=== PATIENT | male | born 1970 | race Caucasian/White ===

== ENCOUNTER 2023-04-14 08:52 | Observation (INO) | payer OTHER ==
[2023-04-14] MEDS ORDERED: NITROGLYCERIN OINT 1 INCH/GM PACKET TOPICAL STA (09:15)
--- NOTE | 2023-04-14 09:18 | ED ---
General Adult HPI - General Chief complaint: Chest Pain Stated complaint: chest pain Time Seen by Provider: 04/14/23 09:00 Source: patient, EMS, RN notes reviewed, old records reviewed Mode of arrival: EMS Limitations: no limitations - History of Present Illness Initial comments: This is a 52-year-old male who is at [facility] for heroin and crack abuse. Patient comes in today because he started having chest pain yesterday. Patient states it was intermittent since yesterday but it came on again this morning it radiated to his left shoulder is mildly short of breath. Patient states she got an aspirin and nitro glycerin in the ambulance and it completely resolved his pain. Patient states she has no symptoms currently. Patient denies any diaphoretic episodes. Patient denies any nausea patient denies any abdominal pain. Patient denies any recent fever chills or cough per patient denies headache patient denies numbness weakness. Currently patient has no complaints patient states he last used drugs on Saturday - Related Data Allergies Allergy/AdvReac Type Severity Reaction Status Date / Time No Known Allergies Allergy Verified 04/14/23 09:00 Review of Systems ROS Statement: Those systems with pertinent positive or pertinent negative responses have been documented in the HPI. ROS Other: All systems not noted in ROS Statement are negative. Past Medical History Past Medical History: Hypertension, Liver Disease History of Any Multi-Drug Resistant Organisms: None Reported Past Surgical History: Appendectomy Past Psychological History: No Psychological Hx Reported Smoking Status: Current every day smoker Past Alcohol Use History: Rare Past Drug Use History: Cocaine, Heroin, Methamphetamine General Exam - General Exam Comments Initial Comments: GENERAL: Patient is well-developed and well-nourished. Patient is nontoxic and well- hydrated and is in no acute distress. ENT: Neck is soft and supple. No significant lymphadenopathy is noted. Oropharynx is clear. Moist mucous membranes. Neck has full range of motion without e liciting any pain. EYES: The sclera were anicteric and conjunctiva were pink and moist. Extraocular movements were intact and pupils were equal round and reactive to light. Eyelids were unremarkable. PULMONARY: Unlabored respirations. Good breath sounds bilaterally. No audible rales rhonchi or wheezing was noted. CARDIOVASCULAR: There is a regular rate and rhythm without any murmurs gallops or rubs. ABDOMEN: Soft and nontender with normal bowel sounds. No palpable organomegaly was no ana maria. There is no palpable pulsatile mass. SKIN: Skin is clear with no lesions or rashes and otherwise unremarkable. NEUROLOGIC: Patient is alert and oriented x3. Cranial nerves II through XII are grossly intact. Motor and sensory are also intact. Normal speech, volume and content. Symmetrical smile. MUSCULOSKELETAL: Normal extremities with adequate strength and full range of motion. No lower extremity swelling or edema. No calf tenderness. LYMPHATICS: No significant lymphadenopathy is noted PSYCHIATRIC: Normal psychiatric evaluation. Limitations: no limitations Course Vital Signs 04/14/23 04/14/23 08:53 10:19 Temperature 98.7 F Pulse Rate 66 68 Respiratory 16 18 Rate Blood Pressure 113/68 99/61 O2 Sat by Pulse 99 98 Oximetry Medical Decision Making - Medical Decision Making EKG is interpreted by myself EKG shows a sinus rhythm at 65 bpm ID interval 206 QRS 105 QT interval 390 QTC is 411. EKG shows no ST segment elevation or depression Was pt. sent in by a medical professional or institution (, PA, SCRUM MASTER, urgent care, hospital, or correction...) When possible be specific @ -[facility] sent the patient in Did you speak to anyone other than the patient for history (EMS, parent, family, police, friend...)? What history was obtained from this source @ -[No] Did you review nursing and triage notes (agree or disagree)? Why? @ -[I reviewed and agree with nursing and triage notes] Were old charts reviewed (outside hosp., previous admission, EMS record, old EK G, old radiological studies, urgent care reports/EKG's, correction records)? Report findings @ -[No old charts were reviewed] Differential Diagnosis (chest pain, altered mental status, abdominal pain women, abdominal pain men, vaginal bleeding, weakness, fever, dyspnea, syncope, headache, dizziness, GI bleed, back pain, seizure, CVA, palpatations, mental he alth, musculoskeletal)? @ -Differential chest pain EKG interpreted by me (3pts min.). @ -[As above] X-rays interpreted by me (1pt min.). @ -Chest x-ray shows no acute abnormality CT interpreted by me (1pt min.). @ -[None done] U/S interpreted by me (1pt. min.). @ -[None done] What testing was considered but not performed or refused? (CT, X-rays, U/S, labs)? Why? @ -[None] What meds were considered but not given or refused? Why? @ -[None] Did you discuss the management of the patient with other professionals (professionals i.e. , PA, SCRUM MASTER, lab, RT, psych nurse, social services director, curtain cutter, teacher, special weapons and tactics officer, correctional casework specialist)? Give summary @ -I spoke with [facility] agreed to admit the patient admitted the patient I wrote admitting orders. Was smoking cessation discussed for >3mins.? @ -[No] Was critical care preformed (if so, how long)? @ -[No] Were there social determinants of health that impacted care today? How? (Homelessness, low income, unemployed, alcoholism, drug addiction, transpor tation, low edu. Level, literacy, decrease access to med. care, residential, rehab)? @ -[No] Was there de-escalation of care discussed even if they declined (Discuss DNR or withdrawal of care, Hospice)? DNR status @ -[No] What co-morbidities impacted this encounter? (DM, HTN, Smoking, COPD, CAD, Cancer, CVA, ARF, Chemo, Hep., AIDS, mental health diagnosis, sleep apnea, morbid obesity)? @ -[None] Was patient admitted / discharged? Hospital course, mention meds given and route, prescriptions, significant lab abnormalities, going to OR and other pertinent info. @ -Patient received aspirin and Nitropaste on the emesis on the way in and his pain has subsided. Patient was given Nitropaste in the emergency department. He no longer had any chest pain. He spoke with [facility] and they agreed to admit the patient admitted the patient wrote admitting orders Undiagnosed new problem with uncertain prognosis? @ -[No] Drug Therapy requiring intensive monitoring for toxicity (Heparin, Nitro, Ins ulin, Cardizem)? @ -[No] Were any procedures done? @ -[No] Diagnosis/symptom? @ -Chest pain Acute, or Chronic, or Acute on Chronic? @ -Acute Uncomplicated (without systemic symptoms) or Complicated (systemic symptoms)? @ -Complicated Side effects of treatment? @ -[No] Exacerbation, Progression, or Severe Exacerbation? @ -[No] Poses a threat to life or bodily function? How? (Chest pain, [place], [place], pneumonia, PE, COPD, DKA, ARF, appy, cholecystitis, CVA, Diverticulitis, Homicidal, Suicidal, threat to staff... and all critical care pts) @ -Yes this can lead to a myocardial infarction and end organ dysfunction - Lab Data Result diagrams: 04/14/23 09:17 04/14/23 09:17 Lab Results 04/14/23 04/14/23 04/14/23 Range/Units 09:17 09:17 09:17 WBC 2.9 L (3.8-10.6) k/uL RBC 4.59 (4.30-5.90) m/uL Hgb 14.1 (13.0-17.5) gm/dL Hct 42.1 (39.0-53.0) % MCV 91.6 (80.0-100.0) fL MCH 30.6 (25.0-35.0) pg MCHC 33.4 (31.0-37.0) g/dL RDW 13.7 (11.5-15.5) % Plt Count 105 L (150-450) k/uL MPV 7.9 Neutrophils % 53 % Lymphocytes % 33 % Monocytes % 6 % Eosinophils % 6 % Basophils % 0 % Neutrophils # 1.5 (1.3-7.7) k/uL Lymphocytes # 1.0 (1.0-4.8) k/uL Monocytes # 0.2 (0-1.0) k/uL Eosinophils # 0.2 (0-0.7) k/uL Basophils # 0.0 (0-0.2) k/uL PT 10.5 (10.0-12.5) sec INR 1.0 (<1.2) APTT 23.7 (22.0-30.0) sec Sodium 138 (137-145) mmol/L Potassium 4.3 (3.5-5.1) mmol/L Chloride 103 (98-107) mmol/L Carbon Dioxide 29 (22-30) mmol/L Anion Gap 6 mmol/L BUN 23 H (9-20) mg/dL Creatinine 0.79 (0.66-1.25) mg/dL Est GFR (CKD-EPI)AfAm >90 (>60 ml/min/1.73 sqM) Est GFR (CKD-EPI)NonAf >90 (>60 ml/min/1.73 sqM) Glucose 114 H (74-99) mg/dL Calcium 9.1 (8.4-10.2) mg/dL Magnesium 1.8 (1.6-2.3) mg/dL Total Bilirubin 0.4 (0.2-1.3) mg/dL AST 26 (17-59) U/L ALT 21 (4-49) U/L Alkaline Phosphatase 54 (38-126) U/L Troponin I (0.000-0.034) ng/mL Total Protein 6.7 (6.3-8.2) g/dL Albumin 3.7 (3.5-5.0) g/dL 04/14/23 Range/Units 09:17 WBC (3.8-10.6) k/uL RBC (4.30-5.90) m/uL Hgb (13.0-17.5) gm/dL Hct (39.0-53.0) % MCV (80.0-100.0) fL MCH (25.0-35.0) pg MCHC (31.0-37.0) g/dL RDW (11.5-15.5) % Plt Count (150-450) k/uL MPV Neutrophils % % Lymphocytes % % Monocytes % % Eosinophils % % Basophils % % Neutrophils # (1.3-7.7) k/uL Lymphocytes # (1.0-4.8) k/uL Monocytes # (0-1.0) k/uL Eosinophils # (0-0.7) k/uL Basophils # (0-0.2) k/uL PT (10.0-12.5) sec INR (<1.2) APTT (22.0-30.0) sec Sodium (137-145) mmol/L Potassium (3.5-5.1) mmol/L Chloride (98-107) mmol/L Carbon Dioxide (22-30) mmol/L Anion Gap mmol/L BUN (9-20) mg/dL Creatinine (0.66-1.25) mg/dL Est GFR (CKD-EPI)AfAm (>60 ml/min/1.73 sqM) Est GFR (CKD-EPI)NonAf (>60 ml/min/1.73 sqM) Glucose (74-99) mg/dL Calcium (8.4-10.2) mg/dL Magnesium (1.6-2.3) mg/dL Total Bilirubin (0.2-1.3) mg/dL AST (17-59) U/L ALT (4-49) U/L Alkaline Phosphatase (38-126) U/L Troponin I <0.012 (0.000-0.034) ng/mL Total Protein (6.3-8.2) g/dL Albumin (3.5-5.0) g/dL Disposition Clinical Impression: Chest pain Disposition: ADMITTED IP TO THIS HOSP Referrals: None,Stated [Primary Care Provider] - 1-2 days Time of Disposition: 11:49
[2023-04-14 09:42] LABS: Basophils % (A) 0 %; Eosinophils # (A) 0.2 k/uL (0-0.7); Eosinophils % (A) 6 %; HCT 42.1 % (39.0-53.0); HGB 14.1 gm/dL (13.0-17.5); Lymphocytes % (A) 33 %; MCH 30.6 pg (25.0-35.0); MCHC 33.4 g/dL (31.0-37.0); MCV 91.6 fL (80.0-100.0); Mean Platelet Volume 7.9; Monocytes # (A) 0.2 k/uL (0-1.0); Monocytes % (A) 6 %; Neutrophils # (A) 1.5 k/uL (1.3-7.7); Neutrophils % (A) 53 %; Platelet Count 105 k/uL (150-450); RBC 4.59 m/uL (4.30-5.90); RDW 13.7 % (11.5-15.5); WBC 2.9 k/uL (3.8-10.6)
[2023-04-14 09:59] LABS: Partial Thromboplastin Time 23.7 sec (22.0-30.0); Prothrombin Time 10.5 sec (10.0-12.5)
[2023-04-14 10:22] LABS: ALT 21 U/L (4-49); AST 26 U/L (17-59); African American GFR (CKD) >90 (>60 ml/min/1.73 sqM); Albumin 3.7 g/dL (3.5-5.0); Alkaline Phosphatase 54 U/L (38-126); Anion Gap 6 mmol/L; Blood Urea Nitrogen 23 mg/dL (9-20); Calcium 9.1 mg/dL (8.4-10.2); Carbon Dioxide 29 mmol/L (22-30); Chloride 103 mmol/L (98-107); Glucose 114 mg/dL (74-99); Magnesium 1.8 mg/dL (1.6-2.3); Non-African American GFR(CKD) >90 (>60 ml/min/1.73 sqM); Potassium 4.3 mmol/L (3.5-5.1); Sodium 138 mmol/L (137-145); Total Bilirubin 0.4 mg/dL (0.2-1.3); Total Protein 6.7 g/dL (6.3-8.2)
--- NOTE | 2023-04-14 10:29 | XR ---
EXAMINATION TYPE: XR chest 2V DATE OF EXAM: 04/14/2023 9:38 AM CLINICAL INDICATION:Male, 52 years old with history of Chest Pain; [facility] COMPARISON: None TECHNIQUE: XR chest 2V Frontal and lateral views of the chest. FINDINGS: Lines/Tubes: EKG leads overlie the chest. No indwelling lines are seen. Lungs/Pleura: There is no evidence of pleural effusion, focal consolidation, or pneumothorax. Lungs appear somewhat hyperinflated with some flattening of the diaphragm. Pulmonary vascularity: Unremarkable. Heart/mediastinum: Cardiomediastinal silhouette is unremarkable. Heart is not enlarged. Musculoskeletal: No acute osseous pathology. Unremarkable soft tissues. Other findings: None IMPRESSION: No acute cardiopulmonary disease/process. Hyperinflated lungs.
[2023-04-14] MEDS ORDERED: NITROGLYCERIN SL TABS 0.4 MG TAB SUBLINGUAL PRN (11:49)
[2023-04-14] MEDS: NITROGLYCERIN OINT 1 INCH/GM PACKET TOPICAL SCH ×2 (12:11→21:14)
[2023-04-14] MEDS ORDERED: traZODone HCL 50 MG TAB PO PRN (13:16)
[2023-04-14] MEDS ORDERED: NON FORMULARY DRUG (Calcium/Magnesium/Zinc/Vitamin D 334/134/5mg 1 TAB) PO PRN (13:16)
[2023-04-14] MEDS ORDERED: MELATONIN 3 MG TABLET PO PRN (13:21)
[2023-04-14] MEDS ORDERED: MAG HYDROX/AL HYDROX/SIMETH 30 ML CUP PO PRN (13:21)
[2023-04-14] MEDS ORDERED: NALOXONE 0.4 MG/ML 1 ML VIAL IV PRN (13:21)
[2023-04-14] MEDS ORDERED: ONDANSETRON 4 MG/2 ML VIAL IVP PRN (13:21)
[2023-04-14] MEDS ORDERED: ACETAMINOPHEN TAB 325 MG TAB PO PRN (13:21)
--- NOTE | 2023-04-14 13:22 | P.HPIM ---
History of Present Illness H&P Date: 04/14/23 History of present illness; patient is a 52-year-old gentleman with history of p olysubstance abuse, was being treated at [facility] for heroin and crack cocaine abuse who Was brought to the ER for chest pain patient stated that he woke up yesterday morning with chest pain that started suddenly, central in location, persistent, varying in intensity throughout the day, no aggravating or relieving factors associated with this chest pain, radiating towards his left arm and is associated with shortness of breath. Denies any palpitation. Denies any orthopnea or PND. Denies any nausea, vomiting or abdominal pain. Denies any sweating. Chest pain persisted throughout yesterday and today and that made him come to the ER Initial lab work done in the ER showed WBC 2.9, hemoglobin 14.1, platelet count 105, sodium 1:30, potassium 4.3, BUN 23, creatinine 0.79, total bilirubin 0.4 AST 26, ALT 21, troponin 0.012 EKG done in the ER heart rate 65, no ST segment elevation, no T-wave inversions seen Chest x-ray done in the ER showed no acute cardiac pulmonary process Patient admitted to medicine service REVIEW OF SYSTEMS: CONSTITUTIONAL: No fever, no malaise, no fatigue. HEENT: No recent visual problems or hearing problems. Denied any sore throat. CARDIOVASCULAR: As mentioned in HPI PULMONARY: No shortness of breath, no cough, no hemoptysis. GASTROINTESTINAL: No diarrhea, no nausea, no vomiting, no abdominal pain. NEUROLOGICAL: No headaches, no weakness, no numbness. HEMATOLOGICAL: Denies any bleeding or petechiae. GENITOURINARY: Denies any burning micturition, frequency, or urgency. MUSCULOSKELETAL/RHEUMATOLOGICAL: Denies any joint pain, swelling, or any muscle pain. ENDOCRINE: Denies any polyuria or polydipsia. The rest of the 14-point review of systems is negative. PHYSICAL EXAMINATION: GENERAL: The patient is alert and oriented x3, not in any acute distress. Well developed, well nourished. HEENT: Pupils are round and equally reacting to light. EOMI. No scleral icterus. No conjunctival pallor. Normocephalic, atraumatic. No pharyngeal erythema. No thyromegaly. CARDIOVASCULAR: S1 and S2 present. No murmurs, rubs, or gallops. PULMONARY: Chest is clear to auscultation, no wheezing or crackles. ABDOMEN: Soft, nontender, nondistended, normoactive bowel sounds. No palpable organomegaly. MUSCULOSKELETAL: No joint swelling or deformity. EXTREMITIES: No cyanosis, clubbing, or pedal edema. NEUROLOGICAL: Gross neurological examination did not reveal any focal deficits. SKIN: No rashes. Assessment and plan Chest pain rule out acute coronary syndrome Polysubstance abuse admits to using cocaine and heroin, last use one week back Monitor vital signs Monitor CBC Monitor CMP Continue telemetry monitoring Trend troponins Ordered urine drug screen Ordered 2-D echo Consult cardiology Labs and medication were reviewed.. Continue same treatment. Continue with symptomatic treatment. Resume home medication. Monitor labs and vitals. DVT and GI prophylaxis. Further recommendations as per clinical course of the patient Dictation was produced using [email or web address] dictation software. please excuse any grammatical, word or spelling errors. Past Medical History Past Medical History: Hypertension, Liver Disease History of Any Multi-Drug Resistant Organisms: None Reported Past Surgical History: Appendectomy Past Psychological History: No Psychological Hx Reported Smoking Status: Current every day smoker Past Alcohol Use History: Rare Past Drug Use History: Cocaine, Heroin, Methamphetamine Medications and Allergies Home Medications Medication Instructions Recorded Confirmed Type Acetaminophen Tab [Tylenol] 650 mg PO Q4H PRN 04/14/23 04/14/23 History Aspirin 325 mg PO ONCE 04/14/23 04/14/23 History Calcium/Magnesium/Zinc/Vitamin D 1 tab PO TID PRN 04/14/23 04/14/23 History 334/134/5mg Ibuprofen [Motrin Ib] 600 mg PO Q6H PRN 04/14/23 04/14/23 History Methadone HCl [Methadone Intensol] 30 mg PO DIRECTED 04/14/23 04/14/23 History busPIRone HCl [Buspar] 10 mg PO TID 04/14/23 04/14/23 History traZODone HCL [Desyrel] 50 - 150 mg PO HS PRN 04/14/23 04/14/23 History Allergies Allergy/AdvReac Type Severity Reaction Status Date / Time No Known Allergies Allergy Verified 04/14/23 12:43 Physical Exam Vitals: Vital Signs Temp Pulse Resp BP Pulse Ox 04/14/23 11:39 60 18 105/63 97 04/14/23 10:19 68 18 99/61 98 04/14/23 08:53 98.7 F 66 16 113/68 99 Intake and Output 04/13/23 04/14/23 04/14/23 22:59 06:59 14:59 Other: Weight 70.76 kg Results CBC & Chem 7: 04/14/23 09:17 04/14/23 09:17 Labs: Abnormal Lab Results - Last 24 Hours (Table) 04/14/23 04/14/23 Range/Units 09:17 09:17 WBC 2.9 L (3.8-10.6) k/uL Plt Count 105 L (150-450) k/uL BUN 23 H (9-20) mg/dL Glucose 114 H (74-99) mg/dL
--- NOTE | 2023-04-14 14:56 | P.CRDCN ---
History of Present Illness Consult date: 04/14/23 History of present illness: HISTORY OF PRESENTING ILLNESS 52-year-old with history of polysubstance abuse being treated at [facility] for he going and crack cocaine abuse. He is also a prior smoker and alcoholic. He also used marijuana. Present to the hospital because of substernal chest pain that started yesterday. He describes is as chest pressure central located. He reported that his symptoms got better after receiving sublingual nitroglycerin in the ER. He is hemodynamically stable. WBC 2.9, hemoglobin 14, platelets 105, sodium 1:30, potassium 4.2, BUN 23, creatinine 0.79, ECG shows sinus rhythm with no significant ST-T wave changes Chest x-ray did not show any acute cardiac permit process He has not had any prior cardiac workups in the past. Family history of CAD in father and stroke in mother Smoker, marijuana user, alcoholic, drug abuse and currently in rehab REVIEW OF SYSTEMS 14 point review of system is negative except what is mentioned above in HPI. PHYSICAL EXAMINATION Vital signs reviewed. Head: Normocephalic. Eyes: Sclerae nonicteric. Neck: Brisk carotid upstroke, no jugular venous distention. Lungs: Clear to auscultation. Heart: Regular rate and rhythm, S1-S2, no S3, no murmur or rub. Abdomen: Soft nontender, positive bowel sounds no organomegaly. Extremities: No edema, intact distal pulses. Neuro: Alert, oritented, no focal deficits ASSESSMENT Typical chest pain, rule out of acute coronary syndrome Polysubstance abuse, cocaine, heroin Tobacco smoker marijuana smoker Alcoholic PLAN Plan for treadmill echocardiogram stress test tomorrow Further recommendations to follow Past Medical History Past Medical History: Hypertension, Liver Disease History of Any Multi-Drug Resistant Organisms: None Reported Past Surgical History: Appendectomy Past Psychological History: No Psychological Hx Reported Smoking Status: Current every day smoker Past Alcohol Use History: Rare Past Drug Use History: Cocaine, Heroin, Methamphetamine Medications and Allergies Home Medications Medication Instructions Recorded Confirmed Type Acetaminophen Tab [Tylenol] 650 mg PO Q4H PRN 04/14/23 04/14/23 History Aspirin 325 mg PO ONCE 04/14/23 04/14/23 History Calcium/Magnesium/Zinc/Vitamin D 1 tab PO TID PRN 04/14/23 04/14/23 History 334/134/5mg Ibuprofen [Motrin Ib] 600 mg PO Q6H PRN 04/14/23 04/14/23 History Methadone HCl [Methadone Intensol] 30 mg PO DIRECTED 04/14/23 04/14/23 History busPIRone HCl [Buspar] 10 mg PO TID 04/14/23 04/14/23 History traZODone HCL [Desyrel] 50 - 150 mg PO HS PRN 04/14/23 04/14/23 History Allergies Allergy/AdvReac Type Severity Reaction Status Date / Time No Known Allergies Allergy Verified 04/14/23 12:43 Physical Exam Vitals: Vital Signs Temp Pulse Resp BP Pulse Ox 04/14/23 14:46 98.1 F 60 18 109/69 98 04/14/23 11:39 60 18 105/63 97 04/14/23 10:19 68 18 99/61 98 04/14/23 08:53 98.7 F 66 16 113/68 99 Intake and Output 04/13/23 04/14/23 04/14/23 22:59 06:59 14:59 Other: Weight 70.76 kg Results 04/14/23 09:17 04/14/23 09:17 Cardiac Enzymes 04/14/23 04/14/23 04/14/23 Range/Units 09:17 09:17 12:24 AST 26 (17-59) U/L Troponin I <0.012 <0.012 (0.000-0.034) ng/mL Coagulation 04/14/23 Range/Units 09:17 PT 10.5 (10.0-12.5) sec APTT 23.7 (22.0-30.0) sec CBC 04/14/23 Range/Units 09:17 WBC 2.9 L (3.8-10.6) k/uL RBC 4.59 (4.30-5.90) m/uL Hgb 14.1 (13.0-17.5) gm/dL Hct 42.1 (39.0-53.0) % Plt Count 105 L (150-450) k/uL Comprehensive Metabolic Panel 04/14/23 Range/Units 09:17 Sodium 138 (137-145) mmol/L Potassium 4.3 (3.5-5.1) mmol/L Chloride 103 (98-107) mmol/L Carbon Dioxide 29 (22-30) mmol/L BUN 23 H (9-20) mg/dL Creatinine 0.79 (0.66-1.25) mg/dL Glucose 114 H (74-99) mg/dL Calcium 9.1 (8.4-10.2) mg/dL AST 26 (17-59) U/L ALT 21 (4-49) U/L Alkaline Phosphatase 54 (38-126) U/L Total Protein 6.7 (6.3-8.2) g/dL Albumin 3.7 (3.5-5.0) g/dL Current Medications Generic Name Dose Route Start Last Admin Trade Name Freq PRN Reason Stop Dose Admin Acetaminophen 650 mg 04/14/23 13:21 Acetaminophen Tab 325 Mg Tab PO Q6HR PRN Mild Pain or Fever > 100.5 Al Hydroxide/Mg Hydroxide 15 ml 04/14/23 13:21 Mag Hydrox/Al Hydrox/Simeth 30 Ml Cup PO Q6HR PRN Indigestion Aspirin 325 mg 04/15/23 09:00 Aspirin 325 Mg Tab PO DAILY [facility] Buspirone HCl 10 mg 04/14/23 16:00 Buspirone Hcl 10 Mg Tab PO TID [facility] Melatonin 3 mg 04/14/23 13:21 Melatonin 3 Mg Tablet PO HS PRN Insomnia Naloxone HCl 0.2 mg 04/14/23 13:21 Naloxone 0.4 Mg/Ml 1 Ml Vial IV Q2M PRN Opioid Reversal Nitroglycerin 0.4 mg 04/14/23 11:49 Nitroglycerin Sl Tabs 0.4 Mg Tab SUBLINGUAL Q5M PRN Chest Pain Nitroglycerin 1 inch 04/14/23 12:00 04/14/23 12:11 Nitroglycerin Oint 1 Inch/Gm Packet TOPICAL Not Given Q6HR [facility] Ondansetron HCl 4 mg 04/14/23 13:21 Ondansetron 4 Mg/2 Ml Vial IVP Q8HR PRN Nausea And Vomiting Trazodone HCl 50 mg 04/14/23 13:16 Trazodone Hcl 50 Mg Tab PO HS PRN Insomnia Intake and Output 04/13/23 04/14/23 04/14/23 22:59 06:59 14:59 Other: Weight 70.76 kg Patient Weight 04/15/23 06:59 Weight 70.76 kg 04/14/23 09:17 04/14/23 09:17
[2023-04-14] MEDS: NICOTINE 21MG/24HR PATCH TRANSDERM SCH (16:04)
[2023-04-14] MEDS: busPIRone HCl 10 MG TAB PO SCH ×2 (16:57→21:08)
[2023-04-14 17:08] LABS: Amphetamine Screen,Urine Not Detected (NotDetected); Barbiturate Screen,Urine Not Detected (NotDetected); Benzodiazepines Screen,Urine Not Detected (NotDetected); Cocaine Screen,Urine Not Detected (NotDetected); Methadone Screen, Urine Detected (NotDetected); Opiate Screen,Urine Not Detected (NotDetected); Oxycodone Screen, Urine Not Detected (NotDetected); Phencyclidine Screen,Urine Not Detected (NotDetected); Tricyclic Antidepressant,Urine Not Detected (NotDetected); Urn Cannabinoid Scrn Not Detected (NotDetected)
[2023-04-15] MEDS: NITROGLYCERIN OINT 1 INCH/GM PACKET TOPICAL SCH ×2 (00:26→06:10)
[2023-04-15 08:28] VITALS: BP 146/85; PULSE 59; RESP 18; TEMP 98.2
[2023-04-15] MEDS ORDERED: ASPIRIN 81 MG PO SCH (09:00)
[2023-04-15] MEDS ORDERED: ASPIRIN 325 MG TAB PO SCH (09:00)
[2023-04-15 09:02] LABS: Blood Urea Nitrogen 20.5 mg/dL (9.0-27.0); Calcium 9.3 mg/dL (8.7-10.3); Chloride 102 mmol/L (96-109); Chol/HDL Ratio 2.68 Ratio; Glucose 86 mg/dL (70-110); LDL Cholesterol,Calculated 84.8 mg/dL (0.0-131.0); Potassium 4.9 mmol/L (3.5-5.5); Sodium 141 mmol/L (135-145)
[2023-04-15] MEDS: NICOTINE 21MG/24HR PATCH TRANSDERM SCH (09:02)
[2023-04-15] MEDS: busPIRone HCl 10 MG TAB PO SCH (09:02)
[2023-04-15 10:25] LABS: Basophils # (A) 0.02 X 10*3/uL (0.00-0.10); Basophils % (A) 0.6 %; Eosinophils # (A) 0.16 X 10*3/uL (0.04-0.35); HGB 13.8 d/dL (13.0-17.0); Lymphocytes % (A) 40.5 %; MCH 29.7 pg (27.0-32.0); MCHC 32.1 d/dL (32.0-37.0); MCV 92.5 FL (80.0-97.0); Mean Platelet Volume 10.6 FL (9.5-12.2); Monocytes # (A) 0.22 X 10*3/uL (0.20-1.00); Monocytes % (A) 6.9 %; NRBC Per 100 WBC 0 X 10*3/uL (0.00-0.01); Neutrophils # (A) 1.49 X 10*3/uL (1.80-7.70); Neutrophils % (A) 46.4 %; Platelet Count 98 X 10*3/uL (140-440); RBC 4.65 X 10*6/uL (4.40-5.60); RDW 13.7 % (11.5-14.5); WBC 3.21 X 10*3/uL (4.50-10.00)
[2023-04-15] MEDS ORDERED: DOBUTamine DRIP for NUC MED 500 MG in DEXTROSE/WATER 1 250ML.BAG IV PRN (11:49)
--- NOTE | 2023-04-15 12:10 | P.PN ---
Subjective HISTORY OF PRESENT ILLNESS: 52-year-old with history of polysubstance abuse being treated at [facility] for he going and crack cocaine abuse. He is also a prior smoker and alcoholic. He also used marijuana. Present to the hospital because of substernal chest pain that started yesterday. He describes is as chest pressure central located. He reported that his symptoms got better after receiving sublingual nitroglycerin in the ER. He is hemodynamically stable. WBC 2.9, hemoglobin 14, platelets 105, sodium 1:30, potassium 4.2, BUN 23, creatinine 0.79, ECG shows sinus rhythm with no significant ST-T wave changes Chest x-ray did not show any acute cardiac permit process He has not had any prior cardiac workups in the past. Family history of CAD in father and stroke in mother Smoker, marijuana user, alcoholic, drug abuse and currently in rehab 04/15/2023 Patient examined this morning at the bedside. Patient denies any further episodes of chest pain or pressure. He denies shortness of breath. Telemetry reveals sinus mechanism. Vital signs are stable. PHYSICAL EXAM: VITAL SIGNS: Reviewed. GENERAL: Well-developed in no acute distress. NECK: Supple. No JVD or thyromegaly LUNGS: Respirations even and unlabored. Lungs essentially clear to auscultation bilaterally. HEART: Regular rate and rhythm. S1 and S2 heard. EXTREMITIES: Normal range of motion. No clubbing or cyanosis. Peripheral pulses intact. No lower extremity edema ASSESSMENT: Chest pain Polysubstance abuse (cocaine and heroin) Nicotine dependence Marijuana use Alcohol abuse PLAN: An acute coronary has been ruled out Decrease aspirin to 81 mg daily Discontinue nitro paste 2-D echo has been ordered. Await results. Patient to undergo stress echocardiogram today If negative, he may be discharged today from a cardiac standpoint Nurse practitioner note has been reviewed by physician. Signing provider agrees with the documented findings, assessment, and plan of care. Objective - Vital Signs Vital signs: Vital Signs Temp 97.7 F 04/15/23 01:05 Pulse 71 04/15/23 02:00 Resp 17 04/15/23 02:00 BP 148/79 04/15/23 01:05 Pulse Ox 100 04/15/23 01:05 FiO2 Intake & Output 04/14/23 04/15/23 04/15/23 18:59 06:59 18:59 Intake Total 120 Balance 120 Weight 70.76 kg Intake: Oral 120 Other: # Voids 2 - Labs CBC & Chem 7: 04/15/23 05:45 04/15/23 05:45 Labs: Abnormal Lab Results - Last 24 Hours (Table) 04/14/23 04/14/23 04/14/23 Range/Units 09:17 09:17 16:52 WBC 2.9 L (3.8-10.6) k/uL Plt Count 105 L (150-450) k/uL BUN 23 H (9-20) mg/dL Glucose 114 H (74-99) mg/dL Urine Methadone Screen Detected H (NotDetected)
[2023-04-15] MEDS ORDERED: DOBUTamine DRIP for NUC MED 500 MG/250 ML BAG IV ONE (12:50)
--- NOTE | 2023-04-15 14:03 | CA ---
Dobutamine Stress Echocardiogram Report Shay Carter Age: 52 Gender: M : 1970 Exam Date: 04/15/2023 11:29 Exam Location: [facility] Ordering Physician: Natty Ya Referring Physician: ISRAEL GR,, Armored Service Technician: Tez Bailey Technologist: Ht (in): 69 Wt (lb): 150 Procedure CPT: Indication: CP ICD-9 Codes: Rhythm: Patient History: CP, DIP, HTN, FAMILY HX, KARRIE (1/5PPD X 40YRS) Cardiac Medications: BUSPAR Medications in past 24 hours: Contrast: Total Dose (mL): Stress Results Protocol: Dobutamine Peak Dose (???g/kg/min): 40 Duration (min:sec): Atropine:(mg) None Target HR: 141 Double Product: [id number] Resting HR: 63 Resting BP: 142 / 83 Peak HR: 146 Peak BP: 233 / 85 Max Predicted HR: 166 88 % Max Predicted HR Stress Summary: BP Response: Reason for Termination: Exceeded target heart rate (85% max predicted) Cardiac Symptoms: Test terminated after reaching target heart rate (85% max predicted) ECG Analysis Resting EKG: Normal sinus rhythm, normal ECG with no blocks. Heart rate 63 beats a minute Stress EKG: No significant ST-T wave changes diagnostic for ischemia by ST segment analysis Arrhythmia: Were no ectopic beats or sustained arrhythmias appreciated during the study Echo Analysis Base Echo Analysis: Normal global LV systolic function. No resting regional wall motion abnormality Low Echo Anaylsis: Normal augmentation of all myocardial segments with no obvious regional wall motion abnormality with low-dose dobutamine infusion Peak Echo Analysis: Normal augmentation of all myocardial segments with no obvious regional wall motion abnormality with peak-dose dobutamine infusion Recovery Echo: No obvious regional wall motion abnormality motion abnormality during recovery MEASUREMENTS (Male/Female) Normal Values CONCLUSIONS Normal dobutamine stress echo cardiographic study Nonischemic ECG and echocardiographic response to dobutamine infusion Normal hemodynamic response to dobutamine infusion Patient could not walk on treadmill for more than a minute due to which the stress test was changed from treadmill echo to dobutamine echocardiogram Dr Israel Gr (Electronically Signed) Final Date: 15 April 2023 14:02
--- NOTE | 2023-04-15 14:54 | CA ---
Transthoracic Echo Report Name: Shay Carter Age: 52 Gender: M : 1970 Exam Date: 04/15/2023 12:54 Exam Location: [facility] Ht (in): 70 Wt (lb): 155 Ordering Physician: Israel Nelson MD ([id number]) Attending/Referring Phys: Receptionist Sandi Ellis [facility] Procedure CPT: Indications: Chest Pain Cardiac Hx: Technical Quality: Fair Contrast 1: Total Dose (mL): Contrast 2: Total Dose (mL): MEASUREMENTS (Male / Female) Normal Values 2D ECHO LV Diastolic Diameter PLAX 4.8 cm 4.2 - 5.9 / 3.9 - 5.3 cm LV Systolic Diameter PLAX 3.5 cm IVS Diastolic Thickness 0.8 cm 0.6 - 1.0 / 0.6 - 0.9 cm LVPW Diastolic Thickness 0.8 cm 0.6 - 1.0 / 0.6 - 0.9 cm LV Relative Wall Thickness 0.3 LVOT Diameter 2.1 cm M-MODE Aortic Root Diameter MM 2.8 cm LA Systolic Diameter MM 3.0 cm LA Ao Ratio MM 1.1 AV Cusp Separation MM 2.0 cm DOPPLER AV Peak Velocity 121.0 cm/s AV Peak Gradient 5.9 mmHg AV Mean Velocity 90.0 cm/s AV Mean Gradient 3.5 mmHg AV Velocity Time Integral 21.5 cm LVOT Peak Velocity 97.0 cm/s LVOT Peak Gradient 3.8 mmHg LVOT Velocity Time Integral 19.8 cm LVOT Stroke Volume 70.9 cm??? LVOT Stroke Volume Index 37.8 ml/m??? LVOT Cardiac Index 3118.8 cm???/min???m??? AV Area Cont Eq vti 3.3 cm??? AV Area Cont Eq pk 2.9 cm??? Mitral E Point Velocity 75.2 cm/s Mitral A Point Velocity 68.2 cm/s Mitral E to A Ratio 1.1 MV Deceleration Time 134.2 ms LV E' Lateral Velocity 12.0 cm/s Mitral E to LV E' Lateral Ratio 6.3 LV E' Septal Velocity 8.8 cm/s Mitral E to LV E' Septal Ratio 8.5 TR Peak Velocity 201.1 cm/s TR Peak Gradient 16.2 mmHg Right Atrial Pressure 3.0 mmHg Pulmonary Artery Systolic Pressu 19.2 mmHg Right Ventricular Systolic Press 19.2 mmHg FINDINGS Left Ventricle Left ventricular wall thickness normal. Left ventricular cavity size normal. Low normal left ventricular systolic function with no obvious regional wall motion abnormalities. Left ventricular ejection fraction is estimated at 55- 60%. Right Ventricle Normal RV size Right Atrium Normal right atrial size. Left Atrium Normal left atrial size. Mitral Valve Mitral valve thickened. Trace mitral regurgitation. Aortic Valve Trileaflet aortic valve. No aortic valve stenosis or regurgitation. Tricuspid Valve Structurally normal tricuspid valve. Trace tricuspid regurgitation. Pulmonic Valve Pulmonic valve not well visualized. Pericardium No pericardial effusion. Aorta Normal size aortic root. CONCLUSIONS Left ventricular ejection fraction is estimated at 55-60%. Left ventricular wall thickness normal. No obvious regional wall motion abnormalities. Normal chamber size No significant valvular dysfunction No evidence of endocarditis on TTE Previewed by: Dr Israel Nelson (Electronically Signed) Final Date: 15 April 2023 14:53
--- NOTE | 2023-04-17 10:18 | P.DS ---
Providers Date of admission: 04/14/23 11:49 Expected date of discharge: 04/15/23 Attending physician: Silvestre Tong MD Consults: 04/14/23 11:49 Consult Physician Urgent Consulting Provider: [facility] Consult Reason/Comments: Chest pain Do you want consulting provider notified?: Yes Primary care physician: Stated None Hospital Course: Final diagnosis Chest pain, ruled out acute coronary syndrome Polysubstance abuse cocaine and heroin, last use one week back Hypertension history History of liver disease Continued ongoing nicotine dependence Discharge disposition Patient is being discharged in a stable condition with guarded prognosis to [facility] for continued drug use rehab . Patient will follow-up with PCP in his hometown in the outpatient setting upon discharge. Patient is to continue with medications per cardiology and close outpatient follow-up with cardiology. Total time taken is greater than 35 minutes. Hospital course This is a 52-year-old male who was recently admitted with sudden onset chest pain while at [facility] and sent here for further evaluation. Cardiology evaluated recommend stress testing which was negative and has been cleared by cardiology. Patient counseled extensively on avoiding drug use and would like to return to [facility] for continued rehab. Please refer to cardiology no for further HPI. Patient also instructed to follow-up with his primary care provider as well as cardiology outpatient. Currently no reports of chest pain, shortness of breath, or palpitations. Patient is afebrile. No reports of nausea or vomiting and patient is tolerating diet. Patient will be going to [facility] for continued rehab today. Guarded prognosis and high risk for readmission due to drug abuse. Physical exam: Gen: This is a 52-year-old male who is awake, alert and oriented 3, well- developed, well-nourished HEENT: Head is atraumatic, normocephalic. Pupils equal, round. Sclerae is anicteric. NECK: Supple. No JVD. No lymphadenopathy. No thyromegaly. LUNGS: Diminished breath sounds bilaterally with no wheezes or rhonchi. No intercostal retractions. HEART: S1, S2 are muffled ABDOMEN: Soft. Bowel sounds are present. No masses. No tenderness. EXTREMITIES: No pedal edema. No calf tenderness. NEUROLOGICAL: Patient is awake, alert and oriented x3. Cranial nerves 2 through 12 are grossly intact. Please refer to medication reconciliation sheet for a list of medications. The impression and plan of care has been dictated by Stephanie Salas, Nurse Practitioner as directed. Dr. Arturo MD I have performed a history and examination and MDM of this patient, discussed the same with the dictator, and agree with the dictator's assessment and plan as written ,documented as a scribe. Based on total visit time, I have performed more than 50% of the visit. Patient Condition at Discharge: Good Plan - Discharge Summary New Discharge Prescriptions: New Aspirin 81 mg PO DAILY #30 tab Nicotine 21Mg/24Hr Patch [Habitrol] 1 patch TRANSDERM DAILY patch Nitroglycerin Sl Tabs [Nitrostat] 0.4 mg SUBLINGUAL Q5M PRN #20 tab PRN Reason: Chest Pain Continue Ibuprofen [Motrin Ib] 600 mg PO Q6H PRN PRN Reason: Pain Methadone HCl [Methadone Intensol] 30 mg PO DIRECTED Calcium/Magnesium/Zinc/Vitamin D 334/134/5mg 1 tab PO TID PRN PRN Reason: muscle spasms traZODone HCL [Desyrel] 50 - 150 mg PO HS PRN PRN Reason: Insomnia Acetaminophen Tab [Tylenol] 650 mg PO Q4H PRN PRN Reason: Pain busPIRone HCl [Buspar] 10 mg PO TID Discontinued Aspirin 325 mg PO ONCE Discharge Medication List Acetaminophen Tab [Tylenol] 650 mg PO Q4H PRN 04/14/23 [History] Calcium/Magnesium/Zinc/Vitamin D 334/134/5mg 1 tab PO TID PRN 04/14/23 [History] Ibuprofen [Motrin Ib] 600 mg PO Q6H PRN 04/14/23 [History] Methadone HCl [Methadone Intensol] 30 mg PO DIRECTED 04/14/23 [History] busPIRone HCl [Buspar] 10 mg PO TID 04/14/23 [History] traZODone HCL [Desyrel] 50 - 150 mg PO HS PRN 04/14/23 [History] Aspirin 81 mg PO DAILY #30 tab 04/15/23 [Rx] Nicotine 21Mg/24Hr Patch [Habitrol] 1 patch TRANSDERM DAILY patch 04/15/23 [Rx] Nitroglycerin Sl Tabs [Nitrostat] 0.4 mg SUBLINGUAL Q5M PRN #20 tab 04/15/23 [Rx] Follow up Appointment(s)/Referral(s): None,Stated [Primary Care Provider] - 1-2 days Activity/Diet/Wound Care/Special Instructions: Okay for discharge once cleared by cardio after negative stress test Activity Limited until follow-up Follow-up with primary care provider on discharge Continue rehab Take medications as prescribed Discharge Disposition: HOME SELF-CARE
== END 2023-04-15 15:26 | disposition home or self-care (01) ==
LOC: EC 08:52 → INTOOBSV 11:49 → 6NMEDSUR 11:49 → UNDODISIN 04-15 15:26
PROVIDERS: ADMIT Internal Medicine; ATTEND Internal Medicine
DX: R07.89 Other chest pain (principal); F14.10 Cocaine abuse, uncomplicated; F10.20 Alcohol dependence, uncomplicated; F12.90 Cannabis use, unspecified, uncomplicated; F11.10 Opioid abuse, uncomplicated; I10 Essential (primary) hypertension; K76.9 Liver disease, unspecified; F17.200 Nicotine dependence, unspecified, uncomplicated; Z79.891 Long term (current) use of opiate analgesic; Z79.899 Other long term (current) drug therapy; Z90.49 Acquired absence of other specified parts of digestive tract; Z82.3 Family history of stroke; Z82.49 Family history of ischemic heart disease and other diseases of the circulatory system
CPT/HCPCS: 99285; 36415; 93005; 93306; 93351; 80061; 80053; 80048; 83735; 84484; 85025 ×2; 85610; 85730; 80306; 71046; G0378; S4990 ×2